=== PATIENT | male | born 1965 | race Caucasian/White ===

== ENCOUNTER 2016-08-29 22:16 | Emergency (ER) | payer OTHER | END 2016-08-30 02:03 | disposition home or self-care (01) | LOC: ER1 22:16 | DX: S05.02XA Injury of conjunctiva and corneal abrasion without foreign body, left eye, initial encounter (principal); X58.XXXA Exposure to other specified factors, initial encounter | CPT/HCPCS: 99283 ==

== ENCOUNTER 2020-07-25 20:24 | Emergency (ER) | payer OTHER ==
[~2020-07-25 20:24] MED LIST: ALBUTEROL1.25 MG/3 INH; COMBIVENT0.074 GM/I INH; CYCLOBENZAPRINE10 MG PO; FLEXERIL 10 MG10 MG PO; IBUPROFEN800 MG PO; LEVAQUIN500 MG PO; MEDROL4 MG PO; NORCO 5-325 TA1 EACH PO; PREDNISONE10 MG PO; ZOLOFT100 MG PO
[2020-07-25 21:22] LABS: HEMOGLOBIN 17.5 gm/dl (14.0-17.5); RED BLOOD COUNT 5.34 M/UL (4.20-5.50); WHITE BLOOD COUNT 7.5 K/UL (4.5-11.0)
[2020-07-25 21:35] LABS: BUN/CREATININE RATIO 12 (0-10)
[2020-07-26] MEDS ORDERED: ZITHROMAX250 MG PO (00:38)
[2020-07-26] MEDS ORDERED: OMNICEF 300 MG300 MG PO (00:38)
[2020-07-26] MEDS ORDERED: MEDROL DOSEPAK 24 MG PO (00:38)
[2020-07-26] MEDS ORDERED: TESSALON PERLE100 MG PO (00:38)
== END 2020-07-26 00:45 | disposition home or self-care (01) ==
LOC: ER1 20:24
PROVIDERS: Physician Assistant Medical
DX: J44.1 Chronic obstructive pulmonary disease with (acute) exacerbation (principal); F17.210 Nicotine dependence, cigarettes, uncomplicated
CPT/HCPCS: 36600; 71045; 80053; 82550; 82553; 82803; 83605; 83874; 84484; 85025; 87040; 93005; 94640; 94664; 96374; 96375; 99285; J0696; J2930

== ENCOUNTER 2020-08-29 13:25 | Emergency (ER) | payer OTHER ==
[~2020-08-29 13:25] MED LIST changes: +MEDROL DOSEPAK 24 MG PO; +OMNICEF 300 MG300 MG PO; +TESSALON PERLE100 MG PO; +ZITHROMAX250 MG PO
[2020-08-29 15:08] LABS: HEMOGLOBIN 16.5 gm/dl (14.0-17.5); RED BLOOD COUNT 5.02 M/UL (4.20-5.50); WHITE BLOOD COUNT 3.9 K/UL (4.5-11.0)
[2020-08-29 15:26] LABS: BUN/CREATININE RATIO 12 (0-10)
[2020-08-29 15:34] LABS: BORDETELLA PARAPERTUSSIS Not Detected (Not Detectd); BORDETELLA PERTUSSIS Not Detected (Not Detectd); CHLAMYDIA PNEUMONIAE Not Detected (Not Detectd); CORONAVIRUS HKU1 Not Detected (Not Detectd); CORONAVIRUS NL63 Not Detected (Not Detectd); CORONAVIRUS OC43 Not Detected (Not Detectd); CORONOAVIRUS 229E Not Detected (Not Detectd); HUMAN METAPNEUMOVIRUS Not Detected (Not Detectd); HUMAN RHINOVIRUS/ENTEROVIRUS Not Detected (Not Detectd); INFLUENZA A Not Detected (Not Detectd); INFLUENZA B Not Detected (Not Detectd); MYCOPLASMA PNEUMONIAE Not Detected (Not Detectd); PARAINFLUENZA VIRUS 1 Not Detected (Not Detectd); PARAINFLUENZA VIRUS 2 Not Detected (Not Detectd); PARAINFLUENZA VIRUS 3 Not Detected (Not Detectd); PARAINFLUENZA VIRUS 4 Not Detected (Not Detectd); RESPIRATORY SYNCYTIAL VIRUS Not Detected (Not Detectd)
[2020-08-29 16:43] LABS: SARS-CoV-2 NOT DETECTED (Not Detectd)
[2020-08-29] MEDS ORDERED: CEFUROXIME500 MG PO (17:54)
[2020-08-29] MEDS ORDERED: ZITHROMAX250 MG PO (17:54)
[2020-08-29] MEDS ORDERED: MEDROL4 MG PO (17:54)
[2020-08-29] MEDS ORDERED: VENTOLIN HFA 66.7 GM INH (17:54)
== END 2020-08-29 18:25 | disposition home or self-care (01) ==
LOC: ER1 13:25
PROVIDERS: Preventive Medicine Occupational Medicine
DX: J44.0 Chronic obstructive pulmonary disease with (acute) lower respiratory infection (principal); J18.9 Pneumonia, unspecified organism; F17.210 Nicotine dependence, cigarettes, uncomplicated
CPT/HCPCS: 36600; 71045; 80053; 82803; 83605; 85025; 85652; 86140; 87040; 87081; 87633; 87880; 94664; 96374; 96375; 99285; J0696; J2405; J7030

== ENCOUNTER 2021-04-06 23:07 | Emergency (ER) | payer OTHER ==
[~2021-04-06 23:07] MED LIST changes: +CEFUROXIME500 MG PO; +VENTOLIN HFA 66.7 GM INH
[2021-04-07 00:38] LABS: HEMOGLOBIN 15.1 gm/dl (14.0-17.5); RED BLOOD COUNT 4.7 M/UL (4.20-5.50); WHITE BLOOD COUNT 6.1 K/UL (4.5-11.0)
[2021-04-07 01:10] LABS: BUN/CREATININE RATIO 9 (0-10)
[2021-04-07] MEDS ORDERED: DOXYCYCLINE HY100 M2 PO (03:28)
[2021-04-07] MEDS ORDERED: PREDNISONE 20 M20 MG PO (03:28)
[2021-04-07] MEDS ORDERED: IPRAT-ALBUT 0.5-3 ML INH (03:38)
[2021-04-07] MEDS ORDERED: BROMFED DM COU473 ML PO (03:38)
== END 2021-04-07 03:43 | disposition home or self-care (01) ==
LOC: ER1 23:07
PROVIDERS: Family Medicine
DX: U07.1 COVID-19 (principal); J44.1 Chronic obstructive pulmonary disease with (acute) exacerbation; F17.200 Nicotine dependence, unspecified, uncomplicated
CPT/HCPCS: 0240U; 71045; 80053; 82550; 82553; 83874; 84484; 85025; 85379; 93005; 94664; 96374; 96375; 99285; J1885; J2930

== ENCOUNTER 2021-04-25 12:39 | Inpatient (IN) | payer OTHER ==
[~2021-04-25] VITALS: Ht 190.5 cm; Wt 85.7 kg
[~2021-04-25 12:39] MED LIST changes: +BROMFED DM COU473 ML PO; +COMBIVENT RESPIM4 GM INH; -COMBIVENT0.074 GM/I INH; +DOXYCYCLINE HY100 M2 PO; +IPRAT-ALBUT 0.5-3 ML INH; +PREDNISONE 20 M20 MG PO
[2021-04-25 14:30] LABS: HEMOGLOBIN 19.4 gm/dl (14.0-17.5); RED BLOOD COUNT 6.2 M/UL (4.20-5.50); WHITE BLOOD COUNT 11.5 K/UL (4.5-11.0)
[2021-04-25 15:02] LABS: BUN/CREATININE RATIO 21 (0-10)
[2021-04-25 17:41] LABS: BUN/CREATININE RATIO 17 (0-10)
[2021-04-25] MEDS ORDERED: ANORO ELLIPTA1 EACH INH (21:50)
[2021-04-25] MEDS ORDERED: ALBUTEROL2.5 MG/3 M INH (21:52)
[2021-04-25] MEDS ORDERED: LIDOCAINE1 EAC1 EXT (22:06)
[2021-04-25 23:55] LABS: BUN/CREATININE RATIO 22 (0-10)
[2021-04-26 01:11] LABS: BORDETELLA PARAPERTUSSIS Not Detected (Not Detectd); BORDETELLA PERTUSSIS Not Detected (Not Detectd); CHLAMYDIA PNEUMONIAE Not Detected (Not Detectd); CORONAVIRUS HKU1 Not Detected (Not Detectd); CORONAVIRUS NL63 Not Detected (Not Detectd); CORONAVIRUS OC43 Not Detected (Not Detectd); CORONOAVIRUS 229E Not Detected (Not Detectd); HUMAN METAPNEUMOVIRUS Not Detected (Not Detectd); HUMAN RHINOVIRUS/ENTEROVIRUS Not Detected (Not Detectd); INFLUENZA A Not Detected (Not Detectd); INFLUENZA B Not Detected (Not Detectd); MYCOPLASMA PNEUMONIAE Not Detected (Not Detectd); PARAINFLUENZA VIRUS 1 Not Detected (Not Detectd); PARAINFLUENZA VIRUS 2 Not Detected (Not Detectd); PARAINFLUENZA VIRUS 3 Not Detected (Not Detectd); PARAINFLUENZA VIRUS 4 Not Detected (Not Detectd); RESPIRATORY SYNCYTIAL VIRUS Not Detected (Not Detectd)
[2021-04-26 02:44] LABS: SARS-CoV-2 DETECTED (Not Detectd)
[2021-04-26 05:54] LABS: HEMOGLOBIN 14.1 gm/dl (14.0-17.5); RED BLOOD COUNT 4.34 M/UL (4.20-5.50)
[2021-04-26 07:15] LABS: BUN/CREATININE RATIO 22 (0-10)
[2021-04-26] MEDS ORDERED: NICOTINE PATCH1 EAC2 TOP (09:50)
[2021-04-26] MEDS ORDERED: DOXYCYCLINE HY100 M2 PO (09:50)
[2021-04-26] MEDS ORDERED: BUDESONIDE0.5 MG/2 M NEB (09:50)
[2021-04-26] MEDS ORDERED: IPRAT-ALBUT 0.5-3 ML NEB (09:50)
[2021-04-26] MEDS ORDERED: GLUCOPHAGE 850850 MG PO (09:50)
[2021-04-26] MEDS ORDERED: LANTUS SOL100 UNIT/1 SQ (09:50)
[2021-04-26] MEDS ORDERED: DEXAMETHASONE2 MG PO (09:55)
--- NOTE | 2021-04-26 12:01 | NUR ---
EXTENSIVE TEACHING GIVEN TO PT AND SPOUSE ON INSULIN ADM., GLUCOSE TESTING, DIET AND EXERCISE. BOTH VERBALIZED UNDERSTANDING.
[2021-04-28 14:11] LABS: ORGANISM ID Not indicated. (.); SPECIMEN SOURCE Urine (.); STREPTOCOCCUS PNEUMONIAE AG Negative (Negative)
== END 2021-04-26 12:08 | disposition home or self-care (01) | DRG 177 ==
LOC: ER1 12:39 → CDU 16:21 → CCU 21:11
PROVIDERS: Physician Assistant; ADMIT Internal Medicine
PROC: 3E0333Z Introduction of Anti-inflammatory into Peripheral Vein, Percutaneous Approach (ICD-10-PCS; 2021-04-25)
PROC: 8E0ZXY6 Isolation (ICD-10-PCS; principal; 2021-04-26)
PROC: B24BZZZ Ultrasonography of Heart with Aorta (ICD-10-PCS; 2021-04-26)
DX: U07.1 COVID-19 (principal); E11.00 Type 2 diabetes mellitus with hyperosmolarity without nonketotic hyperglycemic-hyperosmolar coma (NKHHC); J96.01 Acute respiratory failure with hypoxia; J12.82 Pneumonia due to coronavirus disease 2019; J44.0 Chronic obstructive pulmonary disease with (acute) lower respiratory infection; J44.1 Chronic obstructive pulmonary disease with (acute) exacerbation; F32.A Depression, unspecified; D75.1 Secondary polycythemia; E83.110 Hereditary hemochromatosis; E88.01 Alpha-1-antitrypsin deficiency; J20.9 Acute bronchitis, unspecified; F17.210 Nicotine dependence, cigarettes, uncomplicated; E11.65 Type 2 diabetes mellitus with hyperglycemia; Z79.4 Long term (current) use of insulin
CPT/HCPCS: ECHO; 71045; 80048; 80053; 81001; 82009; 82550; 82553; 82728; 82803; 82962; 83036; 83540; 83550; 83605; 83735; 83874; 83930; 84100; 84484; 85025; 85379; 85610; 86140; 86738; 87040; 87278; 87633; 87899; 93005; 93306; 94640; 94664; 94760; 96365; 96372; 96375; 99285; J1100; J1200; J1650; J2185; J2930; J3370; J3480; J7030; J7070; Q9967; U0002

== ENCOUNTER 2021-07-05 13:29 | Emergency (ER) | payer OTHER ==
[~2021-07-05 13:29] MED LIST changes: +ALBUTEROL2.5 MG/3 M INH; +ANORO ELLIPTA1 EACH INH; +BUDESONIDE0.5 MG/2 M NEB; +DEXAMETHASONE2 MG PO; +GLUCOPHAGE 850850 MG PO; +IPRAT-ALBUT 0.5-3 ML NEB; +LANTUS SOL100 UNIT/1 SQ; +LIDOCAINE1 EAC1 EXT; +NICOTINE PATCH1 EAC2 TOP
[2021-07-05 16:15] LABS: HEMOGLOBIN 16.2 gm/dl (14.0-17.5); RED BLOOD COUNT 5.05 M/UL (4.20-5.50); WHITE BLOOD COUNT 7.7 K/UL (4.5-11.0)
[2021-07-05 16:49] LABS: BUN/CREATININE RATIO 7 (0-10)
[2021-07-05] MEDS ORDERED: ONDANSETRON ODT4 MG SL (18:58)
[2021-07-05] MEDS ORDERED: IMODIUM CAP 2 MG2 MG PO (18:58)
== END 2021-07-05 19:36 | disposition home or self-care (01) ==
LOC: ER1 13:29
PROVIDERS: Family Medicine
DX: R10.31 Right lower quadrant pain (principal); R10.32 Left lower quadrant pain; R19.7 Diarrhea, unspecified; J44.9 Chronic obstructive pulmonary disease, unspecified; E11.9 Type 2 diabetes mellitus without complications; F17.200 Nicotine dependence, unspecified, uncomplicated; Z79.4 Long term (current) use of insulin
CPT/HCPCS: 80053; 81001; 82150; 83690; 85025; 99284; Q9967